=== PATIENT | female | born 1955 | race Caucasian/White ===

== ENCOUNTER 2017-05-22 19:09 | Emergency (ER) | payer MEDICAID ==
[2017-05-22 23:06] VITALS: BP 192/90
== END 2017-05-22 23:06 | disposition home or self-care (01) ==
LOC: ED 19:09
DX: J02.9 Acute pharyngitis, unspecified (principal); E11.9 Type 2 diabetes mellitus without complications; E78.00 Pure hypercholesterolemia, unspecified

== ENCOUNTER 2019-01-29 20:19 | Emergency (ER) | payer MEDICAID ==
[~2019-01-29] VITALS: Ht 152.4 cm; Wt 59.9 kg
[2019-01-29 20:28] VITALS: Ht 152.4 cm; Wt 59.9 kg
[2019-01-29 21:16] LABS: BASOPHIL % 0.4 % (0-2); PLATELET COUNT 341 x10^3mcL (130-400)
[2019-01-29 21:18] LABS: RED CELL DISTRIBUTION WIDTH 15.4 % (11.5-14.5)
[2019-01-29 21:35] LABS: ALBUMIN 2.6 g/dL (3.4-5.0); BILIRUBIN TOTAL 0.6 mg/dL (0.20-1.00); CALCIUM 8.2 mg/dL (8.5-10.1); MAGNESIUM 2.3 mg/dL (1.8-2.4); POTASSIUM SERUM 4.5 mmol/L (3.5-5.1); TOTAL PROTEIN, SERUM 7.2 g/dL (6.4-8.2)
[2019-01-29 21:37] LABS: CREATININE SERUM 4.4 mg/dL (0.6-1.0)
[2019-01-29 21:39] VITALS: BP 152/94
== END 2019-01-29 21:35 | disposition short-term general hospital (02) ==
LOC: ED 20:19
PROVIDERS: Emergency Medicine
DX: I21.3 ST elevation (STEMI) myocardial infarction of unspecified site (principal); J18.9 Pneumonia, unspecified organism; I10 Essential (primary) hypertension; E11.9 Type 2 diabetes mellitus without complications; E78.00 Pure hypercholesterolemia, unspecified; Z90.49 Acquired absence of other specified parts of digestive tract; Z88.5 Allergy status to narcotic agent; Z86.73 Personal history of transient ischemic attack (TIA), and cerebral infarction without residual deficits
CPT/HCPCS: 83880; 87804; Q0092